=== PATIENT | female | born 1990 | race Caucasian/White ===

== ENCOUNTER 2017-09-05 08:45 | Inpatient (IN) | payer OTHER ==
[2017-09-05] MEDS ORDERED: LR 1,000 ML IV (09:05)
[2017-09-05 09:37] LABS: HEMOGLOBIN 10.3 g/dl (12.0-15.5); MEAN CORPUSCULAR HEMOGLOBIN 28.8 pg (27.0-33.0); MEAN CORPUSCULAR HGB CONC 33.2 g/dl (32.0-36.5); MEAN CORPUSCULAR VOLUME 86.6 fl (80.0-96.0); PLATELET COUNT, AUTOMATED 233 10^3/uL (150-450); RED BLOOD COUNT 3.58 10^6/uL (4.00-5.40); RED CELL DISTRIBUTION WIDTH 13.1 % (11.5-14.5); WHITE BLOOD COUNT 14.1 10^3/uL (4.0-10.0)
[2017-09-05] MEDS: OXYTOCIN DRIP 30 UNITS in APPROPRIATE DILUENT 1 EA IV (17:08)
[2017-09-05] MEDS ORDERED: DIBUCAINE 1% OINTMENT 30GM TOP (17:15)
[2017-09-05] MEDS ORDERED: ONDANSETRON 4MG/2ML VIAL (J2405) IV (17:15)
[2017-09-05] MEDS: RHOGAM 300 MCG (1500 IU) INJ (J2790) IM (18:00)
[2017-09-05] MEDS: MEASLES,MUMPS,RUBELLA VACCINE INJ (MMR-II) (90707) SC (18:00)
[2017-09-05] MEDS: ACETAMINOPHEN TAB 650MG DOSE (2X325MG) PO (18:46)
[2017-09-05] MEDS: DOCUSATE SODIUM 100 MG CAP PO (20:03)
[2017-09-06] MEDS: IBUPROFEN 800 MG TAB PO ×2 (06:09→18:02)
[2017-09-06] MEDS: PRENATAL VITAMINS CHEWABLE TABLET PO (08:15)
[2017-09-06] MEDS: DOCUSATE SODIUM 100 MG CAP PO ×2 (08:16→20:03)
[2017-09-07] MEDS: IBUPROFEN 800 MG TAB PO (07:18)
[2017-09-07] MEDS: DOCUSATE SODIUM 100 MG CAP PO (07:18)
[2017-09-07] MEDS: PRENATAL VITAMINS CHEWABLE TABLET PO (07:18)
== END 2017-09-07 11:25 | disposition home or self-care (01) | DRG 776 ==
LOC: M LDI 08:45 → M OBS 12:30
PROVIDERS: Obstetrics & Gynecology
DX: Z39.0 Encounter for care and examination of mother immediately after delivery (principal)